=== PATIENT | male | born 1960 | race African-American/Black ===

== ENCOUNTER → 2016-11-05 | Day surgery (SDC) | payer BC ==
[~2016-11-05] MED LIST: LO-DOSE ASPIRIN81 M1 PO; METFORMIN HCL500 M4 PO; VITAMIN D350000 UNIT PO
--- NOTE | ~2016-11-05 | OR ---
Unit #: [id number] #: [id number] Patient: LUANN LEACH JR [id number] [address] [address] [id number] MR#: [id number] NAME: LUANN LEACH JR ROOM: Date of Procedure: 11/05/2016 Admission Date: 11/05/2016 Surgeon: Galindo Louis III, M.D. : 1960 Attending Physician: Galindo Louis III, M.D. Primary Care Physician: Airam Lauren Aprn OPERATIVE REPORT PREOPERATIVE DIAGNOSIS Screening colonoscopy. POSTOPERATIVE DIAGNOSIS Screening colonoscopy. PROCEDURE PERFORMED Colonoscopy to cecum. ANESTHESIA Versed 7 mg and 50 mg of Demerol. SPECIMENS None. COMPLICATIONS None apparent. FINDINGS Normal colonoscopy. INDICATIONS FOR PROCEDURE This is a 56-year-old gentleman, who is here today for screening colonoscopy. DESCRIPTION OF PROCEDURE After consent was obtained, the patient was brought to the endoscopy suite and placed in the left lateral decubitus position. I titrated the above sedation and I performed a rectal exam, I did not feel any masses. The scope was placed within the rectal vault, air was insufflated, and I navigated the scope all the way to the cecum without any difficulty. He had normal mucosa. No evidence of any polyps or masses and no diverticular disease was seen. The scope was retroflexed within the rectum. No other masses were seen. The scope was then carefully withdrawn. The patient tolerated the procedure without any problems and returned to the recovery room in stable condition. Dictated by... Galindo Louis III, M.D. VCL/modl Unit #: [id number] #: [id number] Patient: LUANN LEACH JR TD: 11/05/2016 07:46 JOB #: [id number] CC: Airam Lauren Aprn OPERATIVE REPORT Page 1 of 1 X Galindo Louis III, MD PROCEDURE OPERATIVE NOTE
== END | disposition home or self-care (01) ==
LOC: COPS 05:45
DX: Z12.11 Encounter for screening for malignant neoplasm of colon (principal); E11.9 Type 2 diabetes mellitus without complications; Z98.890 Other specified postprocedural states; Z79.84 Long term (current) use of oral hypoglycemic drugs; Z79.899 Other long term (current) drug therapy; Z79.82 Long term (current) use of aspirin
CPT/HCPCS: 82947; J2175; J2250